=== PATIENT | male | born 2000 | race Caucasian/White ===

== ENCOUNTER 2019-07-15 23:31 | Emergency (ER) | payer SELFPAY ==
--- NOTE | 2019-07-15 23:50 | ERPHSYRPT ---
- History of Present Illness Time Seen by Provider: 07/15/19 23:45 Historian: patient Exam Limitations: no limitations Physician History: For the past month pt has had sharp intermittent left lower back pain radiating to the abdominal LLQ and left testis with episodes lasting up to 4 hours. Last BM was this morning & wnl. Pt denies chest pain, vomiting, shortness of air, fever. Allergies/Adverse Reactions: No Known Drug Allergies Allergy (Unverified 07/15/19 23:53) Home Medications: No Reportable Medications [No Reported Medications] 07/15/19 [History] Hx Tetanus, Diphtheria Vaccination/Date Given: Yes Hx Influenza Vaccination/Date Given: No Hx Pneumococcal Vaccination/Date Given: No Travel Risk - International Travel Have you traveled outside of the country in past 3 weeks: No Have you or anyone close to you been diagnosed with or: No Do your reside in a community with a known COVID-19 case?: Yes If Yes where:: [facility] - Coronavirus Screening Has patient experienced Coronavirus symptoms: No - Review of Systems Constitutional: No Fever Respiratory: No Dyspnea Cardiac: No Chest Pain Abdominal/Gastrointestinal: Abdominal Pain, No Vomiting Genitourinary Symptoms: Testicle Pain (left) Musculoskeletal: Back Pain Neurological: No Headache All Other Systems: Reviewed and Negative - Past Medical History Pertinent Past Medical History: No Neurological History: No Pertinent History ENT History: No Pertinent History Cardiac History: No Pertinent History Respiratory History: No Pertinent History Endocrine Medical History: No Pertinent History Musculoskeletal History: No Pertinent History GI Medical History: No Pertinent History History: No Pertinent History Psycho-Social History: No Pertinent History Male Reproductive Disorders: No Pertinent History Other Medical History: HEALTHY - Past Surgical History Past Surgical History: No Neuro Surgical History: No Pertinent History Cardiac: No Pertinent History Respiratory: No Pertinent History Gastrointestinal: No Pertinent History Genitourinary: No Pertinent History Musculoskeletal: No Pertinent History Male Surgical History: No Pertinent History - Social History Smoking Status: Never smoker Exposure to second hand smoke: No Drug Use: none Patient Lives Alone: No - Nursing Vital Signs Nursing Vital Signs: Initial Vital Signs Temperature 98.5 F 07/15/19 23:40 Pulse Rate 100 H 07/15/19 23:40 Blood Pressure 146/83 07/15/19 23:40 O2 Sat by Pulse Oximetry 99 07/15/19 23:40 Pain Scale Pain Intensity 5 - Physical Exam General Appearance: alert Eye Exam: PERRL/EOMI Ears, Nose, Throat Exam: pharynx normal, moist mucous membranes Neck Exam: normal inspection Respiratory Exam: lungs clear Cardiovascular Exam: normal heart sounds Gastrointestinal/Abdomen Exam: soft, normal bowel sounds, tenderness (mild LLQ abdominal tenderness.) Back Exam: normal range of motion Extremity Exam: No pedal edema Neurologic Exam: alert, cooperative Skin Exam: warm, dry SpO2 Interpretation: normal SpO2: 99 O2 Delivery: Room Air - Course Nursing assessment & vital signs reviewed: Yes - CT Exams Abdomen/Pelvis CT Interpretation: Tele-radiologist Report (no hydronephrosis or evidence of urolithiasis.) - Radiology Ultrasound Exam Scrotal Ultrasound: Other (tech report: no testicular torsion - normal testicles. ) Ordered Tests: Active Orders 24 hr Category Date Time Status Isolation, Initiate & Maintain Q6H Care 07/15/19 23:51 Active ABDOMEN AND PELVIS W/0 CONTRAS [CT] Stat Exams 07/16/19 00:24 Taken TESTICLE [US] Stat Exams 07/16/19 01:14 Taken UA W/RFX UR CULTURE Stat Lab 07/16/19 00:31 Completed Lab/Rad Data: Laboratory Result Diagrams 07/15/19 00:10 07/15/19 00:10 Laboratory Results 07/16/19 07/15/19 07/15/19 Range/Units 00:31 00:10 00:10 WBC 8.4 (4.0-10.5) K/mm3 RBC 4.64 (4.1-5.6) M/mm3 Hgb 14.4 (12.5-18.0) gm/dl Hct 42.8 (42-50) % MCV 92.2 (78-100) fl MCH 31.0 (26-32) pg MCHC 33.6 (32-36) g/dl RDW 13.0 (11.5-14.0) % Plt Count 222 (150-450) K/mm3 MPV 11.4 H (7.5-11.0) fl Gran % 64.3 (36.0-66.0) % Eos # (Auto) 0.08 (0-0.5) Absolute Lymphs (auto) 1.72 (1.0-4.6) Absolute Monos (auto) 1.16 (0.0-1.3) Lymphocytes % 20.5 L (24.0-44.0) % Monocytes % 13.8 H (0.0-12.0) % Eosinophils % 1.0 (0.00-5.0) % Basophils % 0.4 (0.0-0.4) % Absolute Granulocytes 5.41 (1.4-6.9) Basophils # 0.03 (0-0.4) Sodium 140 (137-145) mmol/L Potassium 3.8 (3.5-5.1) mmol/L Chloride 107 (98-107) mmol/L Carbon Dioxide 24 (22-30) mmol/L Anion Gap 12.9 (5-15) MEQ/L BUN 18 (9-20) mg/dL Creatinine 0.88 (0.66-1.25) mg/dL Estimated GFR > 60.0 ML/MIN Glucose 99 (74-106) mg/dL Calcium 8.8 (8.4-10.2) mg/dL Total Bilirubin 0.40 (0.2-1.3) mg/dL AST 38 (17-59) U/L ALT 28 (0-50) U/L Alkaline Phosphatase 65 (38-126) U/L Serum Total Protein 7.3 (6.3-8.2) g/dL Albumin 4.3 (3.5-5.0) g/dL Amylase 47 (30-110) U/L Lipase 69 (23-300) U/L Urine Color YELLOW (YELLOW) Urine Appearance CLEAR (CLEAR) Urine pH 7.0 (5-6) Ur Specific [place] 1.024 (1.005-1.025) Urine Protein NEGATIVE (Negative) Urine Ketones TRACE (NEGATIVE) Urine Blood NEGATIVE (0-5) Stew/ul Urine Nitrite NEGATIVE (NEGATIVE) Urine Bilirubin NEGATIVE (NEGATIVE) Urine Urobilinogen 2 (0-1) mg/dL Ur Leukocyte Esterase NEGATIVE (NEGATIVE) Urine WBC (Auto) NONE (0-5) /HPF Urine RBC (Auto) NONE SEEN (0-2) /HPF U Epithel Cells (Auto) NONE (FEW) /HPF Urine Bacteria (Auto) NONE SEEN (NEGATIVE) /HPF Urine Mucus (Auto) SLIGHT (NEGATIVE) /HPF Urine Culture Reflexed NO (NO) Urine Glucose NEGATIVE (NEGATIVE) mg/dL - Progress Progress: unchanged Counseled pt/family regarding: lab results, rad results - Departure Departure Disposition: Home Clinical Impression: abdominal pain, Left testicular pain, low back pain Condition: Stable Critical Care Time: No Referrals: KASEY DAVISON [Primary Care Provider] - Instructions: Acute Abdomen (Belly Pain) Additional Instructions: Follow up with private doctor tomorrow.
[2019-07-16 00:20] LABS: Absolute Neutrophil Ct (ANC) 5.41 (1.4-6.9); BASOPHIL % 0.4 % (0.0-0.4); Basophil (Absolute #) 0.03 (0-0.4); Eosinophil (Absolute #) 0.08 (0-0.5); Hematocrit 42.8 % (42-50); Hemoglobin 14.4 gm/dl (12.5-18.0); Lymphocyte (Absolute #) 1.72 (1.0-4.6); Lymphocytes % 20.5 % (24.0-44.0); Mean Cell Volume 92.2 fl (78-100); Mean Corpuscular Hgb Concent. 33.6 g/dl (32-36); Mean Platelet Volume 11.4 fl (7.5-11.0); Monocyte (Absolute #) 1.16 (0.0-1.3); Monocytes % 13.8 % (0.0-12.0); Neutrophil % 64.3 % (36.0-66.0); Platelet Count 222 K/mm3 (150-450); Red Blood Count 4.64 M/mm3 (4.1-5.6); White Blood Count 8.4 K/mm3 (4.0-10.5)
[2019-07-16 00:32] LABS: ALBUMIN 4.3 g/dL (3.5-5.0); ALKALINE PHOSPHATASE 65 U/L (38-126); AMYLASE 47 U/L (30-110); ANION GAP 12.9 MEQ/L (5-15); BLOOD UREA NITROGEN 18 mg/dL (9-20); CHLORIDE 107 mmol/L (98-107); Calcium 8.8 mg/dL (8.4-10.2); Carbon Dioxide 24 mmol/L (22-30); Creatinine 1 0.88 mg/dL (0.66-1.25); Glucose 99 mg/dL (74-106); LIPASE 69 U/L (23-300); Potassium 3.8 mmol/L (3.5-5.1); SGOT/AST 38 U/L (17-59); SGPT/ALT 28 U/L (0-50); SODIUM 140 mmol/L (137-145); Total Protein 7.3 g/dL (6.3-8.2)
[2019-07-16 00:38] LABS: Appearance CLEAR (CLEAR); Bilirubin NEGATIVE (NEGATIVE); Blood NEGATIVE Ery/ul (0-5); Glucose NEGATIVE (NEGATIVE); Ketones TRACE (NEGATIVE); Leukocyte Esterase NEGATIVE (NEGATIVE); Mucus SLIGHT /HPF (NEGATIVE); Nitrite NEGATIVE (NEGATIVE); Protein,Urine Dip NEGATIVE (Negative); Specific Gravity 1.024 (1.005-1.025); Urobilinogen 2 mg/dL (0-1)
[2019-07-16 00:39] LABS: Bacteria NONE SEEN /HPF (NEGATIVE); RBC NONE SEEN /HPF (0-2)
[2019-07-16 02:21] VITALS: BP 131/84
[2019-07-16 03:09] VITALS: PULSE 82; O2SAT 97
--- NOTE | 2019-07-16 08:14 | XRAY ---
Indication: Left testicle pain 1 month. Two-dimensional testicular sonogram performed. Comparison: None Both testicles are homogeneous in echogenicity with normal color perfusion. Right testicle measures 4.0 x 2.6 x 4.6 cm and the left measures 4.9 x 2.2 x 3.3 cm. Left and right epididymis sonographically unremarkable. No suspicious extratesticular mass or hydrocele. Impression: Negative testicle sonogram. Comment: Preliminary report was given.
--- NOTE | 2019-07-16 08:59 | XRAY ---
Indication: Left lower quadrant and left back pain radiating to testicle. Multiple contiguous axial images obtained through the abdomen and pelvis without contrast as ordered. Comparison: October 11, 2014. Lung bases demonstrate minimal bibasilar dependent atelectasis. No infiltrate or effusion. Heart is not enlarged. Stomach is distended with food/fluid. Gallbladder contracted without gallstones. Noncontrasted stomach and bowel loops appear nonobstructed. Normal appendix. There is mild diffuse colonic fecal debris predominantly in the ascending colon. No free fluid/air. Right mid kidney now demonstrates a slightly dense 6 mm peripheral lesion. Remaining liver, gallbladder, pancreas, spleen, adrenal glands, kidneys, ureters, bladder, and aorta appear unremarkable for noncontrast exam. Osseous structures intact again with small multilevel thoracolumbar Schmorl nodes. No ventral or inguinal hernias. Impression: 1. Tiny right mid renal hyperdense lesion. Ultrasound may be performed to determine solid versus cystic mass. 2. Remaining CT abdomen/pelvis without contrast exam is negative. Comment: Preliminary interpretation was made by [facility]. No critical discrepancy.
== END 2019-07-16 03:00 | disposition home or self-care (01) ==
LOC: ED 23:31
DX: R10.9 Unspecified abdominal pain (principal); N50.812 Left testicular pain; M54.5 Low back pain
CPT/HCPCS: 36415; 74176; 76870; 80053; 81001; 82150; 83690; 85025; 99284